=== PATIENT | male | born 1955 | race American Indian/Alaskan Native ===

== ENCOUNTER 2018-06-17 05:24 | Emergency (ER) | payer MEDICAID ==
--- NOTE | 2018-06-17 06:22 | Emergency Department Report ---
HPI - General Chief Complaint: Cardiac Arrest/CPR Time Seen by Provider: 06/17/18 05:42 - HPI HPI: 62-year-old male presents to the emergency department by EMS from [place] in cardiac arrest. Apparently the patient's last known well time was about 25-30 minutes prior to presentation. He has a past medical history of diabetes. Patient was found unresponsive and pulseless by EMS. They started ACLS protocol including intubating the patient, chest compressions, and the patient received 2 rounds of epinephrine. The patient was in asystole the entire time with EMS and also presented to the emergency department pulseless and in asystole. ED Past Medical Hx - Past Medical History Previous Medical History?: Yes Hx Hypertension: Yes Hx CVA: Yes Hx Diabetes: Yes - Surgical History Past Surgical History?: Yes Additional Surgical History: amputation - Social History Smoking Status: Never Smoker Substance Use Type: None - Medications Home Medications: Home Medications Medication Instructions Recorded Confirmed Last Taken Type Amoxicillin/K Clav Tab [Augmentin 1 tab PO Q12HR #20 tab 03/16/17 Unknown Rx 875 mg] Aspirin TAB 325 mg PO DAILY 03/16/17 03/16/17 Unknown History Carvedilol 6.25 mg PO BID 03/16/17 03/16/17 Unknown History Ferosul Oral Liq 325 mg PO DAILY 03/16/17 03/16/17 Unknown History Furosemide 20 mg PO 3XW 03/16/17 03/16/17 Unknown History Glipizide 10 mg PO BID 03/16/17 03/16/17 Unknown History Lisinopril 40 mg PO DAILY 03/16/17 03/16/17 Unknown History Tamsulosin 0.4 mg PO DAILY 03/16/17 03/16/17 Unknown History Vitamin D3 2,000 units PO DAILY 03/16/17 03/16/17 Unknown History Xarelto 20 mg PO DAILY 03/16/17 03/16/17 Unknown History amLODIPine 5 mg PO DAILY 03/16/17 03/16/17 Unknown History ED Review of Systems ROS: Stated complaint: CARDIAC ARREST Other details as noted in HPI Comment: Unobtainable due to pts medical conditions Physical Exam - Physical Exam Physical Exam: GENERAL: Patient is ill-appearing and unresponsive. HEENT: Normocephalic. Atraumatic. EYES: Pupils are fixed and dilated.. NECK: Supple. Trachea is midline. CHEST/LUNGS: No spontaneous breath sounds. HEART/CARDIOVASCULAR: No spontaneous heart sounds. ABDOMEN: Abdomen is soft. Obese habitus. SKIN: Skin is cool and dry. NEURO: The patient is unresponsive to any verbal or tactile stimuli. MUSCULOSKELETAL: There is no obvious deformity. There is no evidence of acute injury. ED Medical Decision Making - Medical Decision Making Patient presents in cardiac arrest in asystole. He received 2 rounds of epinephrine with EMS. He was intubated and received bag valve ventilation. When he arrived to the emergency department we continued chest compressions while he was placed on our monitor. He was seen to be in asystole and was still pulseless. We continued ACLS protocol. Patient was given 3 rounds of epinephrine, one dose of sodium bicarbonate. With each rhythm and pulse check, the patient was found to be pulseless and in asystole. The patient started to show some lividity. Overall the patient had been pulseless for about 40 minutes. At this point time of was called at 5:36 AM. Critical Care Time: Yes Critical care time in (mins) excluding proc time.: 10 Critical care attestation.: If time is entered above; I have spent that time in minutes in the direct care of this critically ill patient, excluding procedure time. Critical care time was spent on this patient during his initial evaluation and supervision of ACLS protocol. Critical Care Time: 10 minutes ED Disposition Clinical Impression: Cardiac arrest Respiratory failure Qualifiers: Chronicity: unspecified Respiratory failure complication: unspecified whether with hypoxia or hypercapnia Qualified Code(s): J96.90 - Respiratory failure, unspecified, unspecified whether with hypoxia or hypercapnia Disposition: DC-20 Is pt being admited?: No Referrals: NICOLA ROLLINS MD [Primary Care Provider] - 3-5 Days Time of Disposition: 06:24
== END 2018-06-17 06:00 ==
LOC: ED 05:24
CPT/HCPCS: 92950